=== PATIENT | female | born 1960 | race Caucasian/White ===

== ENCOUNTER 2016-07-25 11:03 | Emergency (ER) | payer SELFPAY ==
[~2016-07-25] VITALS: Ht 167.6 cm; Wt 90.0 kg
[2016-07-25 11:05] VITALS: BP 167/76; PULSE 72; RESP 16; TEMP 98.7; O2SAT 97
[2016-07-25] MEDS ORDERED: AMLO5 PO (11:17)
[2016-07-25] MEDS ORDERED: ONDANSETRON ODT 4 MG TAB PO ONE (11:30)
[2016-07-25] MEDS ORDERED: MECLIZINE HCL 25 MG TAB PO ONE (11:30)
[2016-07-25] MEDS ORDERED: ACETAMINOPHEN 325 MG TAB PO ONE (11:30)
[2016-07-25] MEDS ORDERED: ZOFR4TAB PO (12:09)
[2016-07-25] MEDS ORDERED: MECL-62 PO (12:09)
--- NOTE | 2016-07-25 12:15 | PD ---
HPI Chief Complaint: Dizziness Time Seen by Provider: 12:10 Travel History International Travel<30 days: No Contact w/Intl Traveler<30days: No Traveled to known affect area: No History of Present Illness HPI 56-year-old female that presents to the ED for evaluation of possible vertigo. Per patient she has a history of benign positional vertigo. She was treated with meclizine on October. Per patient she had good results with this. She has not had any episodes since. Per patient she denies any fevers chills or sweats. No numbness, tilling, weakness. Per patient her symptoms are sensation of the room and herself spinning and feeling nauseous with slight headache. Per patient this is the same symptoms she had on her last presentation and unfortunately she ran out of her medical since that she did not have anything to help her symptoms which brought her here to get evaluated. She denies any other symptom. No chest pain or shortness of breath. No urinary symptoms. Pain per patient and the head is 3 out of 10 and she attributes this to the spinning sensation. She feels nauseous secondary to the spinning sensation per patient. She has a history of high blood pressure but no other medical disease. PFSH Past Medical History Hypertension: Yes Kidney Stones: Yes Tetanus Vaccination: < 5 Years ?: Not Tubal Ligation: Yes Past Surgical History Appendectomy: Yes Social History Alcohol Use: No Tobacco Use: No Substance Use: No Allergies-Medications (Allergen,Severity, Reaction): Coded Allergies: Levaquin (Verified Allergy, Severe, 07/25/16) Reported Meds & Prescriptions Reported Meds & Active Scripts Active Zofran (Ondansetron HCl) 4 Mg Tab 4 Mg PO Q6HR PRN Meclizine (Meclizine HCl) 25 Mg Tab 25 Mg PO TID PRN Reported Norvasc (Amlodipine Besylate) 5 Mg Tab 5 Mg PO DAILY Review of Systems Except as stated in HPI: all other systems reviewed are Neg Physical Exam Narrative GENERAL: Well-nourished, well-developed patient in no apparent distress. SKIN: Warm and dry. HEAD: Atraumatic. Normocephalic. EYES: Pupils equal and round reactive to light and accommodation. No scleral icterus. No injection or drainage. ENT: No nasal bleeding or discharge. Mucous membranes pink and moist. TMs are clear with no sign of infection or perforation. No mastoid tenderness. Ear canals are intact bilaterally. No lymphadenopathy. Nostril mucosa is red and moist with clear mucus noted. No sinus tenderness to palpation noted. Tonsils are not enlarged or swollen. No ulvua Deviation. Tongue is midline. NECK: Trachea midline. No JVD. No meningeal signs noted CARDIOVASCULAR: Regular rate and rhythm. RESPIRATORY: No accessory muscle use. Clear to auscultation. Breath sounds equal bilaterally. GASTROINTESTINAL: Abdomen soft, non-tender, nondistended. Hepatic and splenic margins not palpable. MUSCULOSKELETAL: Extremities without clubbing, cyanosis, or edema. No obvious deformities. Full range of motion of the upper and lower extremities bilaterally. 2+ pulses bilaterally. NEUROLOGICAL: Awake and alert. No obvious cranial nerve deficits. Motor grossly within normal limits. Five out of 5 muscle strength in the arms and legs. Normal speech. Romberg test negative. Sensation intact bilaterally. DTRs are 2+ bilaterally. Patient's symptoms are reproducible with standing and movements of the head. PSYCHIATRIC: Appropriate mood and affect; insight and judgment normal. Data Data Last Documented VS Vital Signs Date Time Temp Pulse Resp B/P Pulse Ox O2 Delivery O2 Flow Rate FiO2 07/25/16 11:05 98.7 72 16 167/76 97 Room Air Orders Electrocardiogram (07/25/16 ) Meclizine (Antivert) (07/25/16 11:30) Ondansetron Odt (Zofran Odt) (07/25/16 11:30) Acetaminophen (Tylenol) (07/25/16 11:30) MDM Medical Decision Making Medical Screen Exam Complete: Yes Emergency Medical Condition: Yes Medical Record Reviewed: Yes Differential Diagnosis Vertigo versus benign positional vertigo versus Mnire's disease versus otitis media versus viral illness versus labyrinthitis Narrative Course 56-year-old female that presents to the ED for evaluation of vertigo. Patient was properly examined and was found to have signs and symptoms consistent appears to be likely benign positional vertigo. Patient states that this is the same symptoms she's had in October and meclizine work well for her. Patient has reproducible symptoms with standing as well as with movements of the head. I believe that this is likely benign positional vertigo. Patient's neurovascular intact otherwise. I gave patient the option of workup or trial of medication with meclizine and Zofran and Tylenol. Patient preferred to try the medication first and see how she does. I think this is reasonable. Patient was given the medications with good relief. Patient feels much improved after administration of medications. My attending Dr. Carey evaluated the patient with me and agrees with plan. Patient will be given prescriptions for Zofran and meclizine. I gave patient information for ear nose or throat so she can have good follow-up and further workup and treatment if needed for the in and positional vertigo. She agrees and understands this plan. She was told was look for come here to the ED. See ED worsening symptoms. Diagnosis Primary Impression: BPPV (benign paroxysmal positional vertigo) Qualified Code: H81.10 - BPPV (benign paroxysmal positional vertigo), unspecified laterality Referrals: Ruben Rose MD Patient Instructions: General Instructions Additional Instructions: Take medications as prescribed. Follow with ENT. See ED worsening symptoms. Med/Other Pt SpecificInfo: Prescription(s) given Scripts Ondansetron (Zofran)4 Mg Tab4 Mg PO Q6HR PRN (NAUSEA OR VOMITING) #20 TAB Ref 0 Prov:Kita Carey MD 07/25/16 Meclizine 25 Mg Tab25 Mg PO TID PRN (VERTIGO) #30 TAB Ref 1 Prov:Kita Carey MD 07/25/16 Disposition: 01 DISCHARGE HOME Condition: Stable Jairon Paez July 25, 2016 12:15
[2016-07-25 12:20] VITALS: BP 152/65
--- NOTE | 2016-07-25 12:22 | PD ---
Data Data Last Documented VS Vital Signs Date Time Temp Pulse Resp B/P Pulse Ox O2 Delivery O2 Flow Rate FiO2 07/25/16 12:20 74 16 152/65 99 07/25/16 11:05 98.7 Room Air Orders Electrocardiogram (07/25/16 ) Meclizine (Antivert) (07/25/16 11:30) Ondansetron Odt (Zofran Odt) (07/25/16 11:30) Acetaminophen (Tylenol) (07/25/16 11:30) MDM Supervised Visit with SHAHEEN: Yes Narrative Course The history, exam, and medical decision-making in the associated midlevel provider note were completed with my assistance. I reviewed and agree with the findings presented. I attest that I had a [id number] encounter with the patient on the same day, and personally performed and documented my assessment and findings in the medical record. *My assessment and Findings: this is a 56-year-old female who presents to the emergency department with vertigo. This has happened to her before. She feels okay when she sits still but when she moves she has onset of the symptoms. She has a normal neurologic exam. She feels much better after meclizine which has helped her in the past. I don't think she requires any further testing or imaging. She can follow up with ear nose and throat as needed. Patient was discharged home Diagnosis Primary Impression: BPPV (benign paroxysmal positional vertigo) Qualified Code: H81.10 - BPPV (benign paroxysmal positional vertigo), unspecified laterality Referrals: Ruben Rose MD Patient Instructions: General Instructions Departure Forms: Tests/Procedures Additional Instruction: Take medications as prescribed. Follow with ENT. See ED worsening symptoms. Scripts Ondansetron (Zofran)4 Mg Tab4 Mg PO Q6HR PRN (NAUSEA OR VOMITING) #20 TAB Ref 0 Prov:Kita Carey MD 07/25/16 Meclizine 25 Mg Tab25 Mg PO TID PRN (VERTIGO) #30 TAB Ref 1 Prov:Kita Carey MD 07/25/16 Disposition: 01 DISCHARGE HOME Condition: Stable Kita Carey MD July 25, 2016 12:22
== END 2016-07-25 12:21 | disposition home or self-care (01) ==
LOC: NEPE 11:03
DX: H81.10 Benign paroxysmal vertigo, unspecified ear (principal); I10 Essential (primary) hypertension; R11.0 Nausea
CPT/HCPCS: 99284

== ENCOUNTER 2016-10-03 08:37 | Emergency (ER) | payer MEDICAID, OTHER ==
[~2016-10-03] VITALS: Ht 167.6 cm; Wt 89.0 kg
[~2016-10-03 08:37] MED LIST: AMLO5 PO; MECL-62 PO; ZOFR4TAB PO
[2016-10-03 08:40] VITALS: BP 178/84; PULSE 78; RESP 20; TEMP 97.8; O2SAT 99
[2016-10-03] MEDS ORDERED: TRAM50TA PO (10:35)
[2016-10-03] MEDS ORDERED: PRED20 PO (10:35)
--- NOTE | 2016-10-03 10:44 | PD ---
HPI Chief Complaint: Musculoskeletal Complaint Time Seen by Provider: 10:01 Travel History International Travel<30 days: No Contact w/Intl Traveler<30days: No Traveled to known affect area: No History of Present Illness HPI His patient complains of pain and swelling in both hands. Duration 2 months. Severity is moderate. No injury or fever. She denies history of inflammatory arthritis. No paresthesia or numbness complaints. PFSH Past Medical History Cardiovascular Problems: Yes (HTN) High Cholesterol: Yes Diminished Hearing: No Hypertension: Yes Kidney Stones: Yes Menopausal: Yes : 5 Para: 4 Tubal Ligation: Yes Past Surgical History Appendectomy: Yes Tonsillectomy: Yes Social History Alcohol Use: No Tobacco Use: No Substance Use: No Allergies-Medications (Allergen,Severity, Reaction): Coded Allergies: Levaquin (Verified Allergy, Severe, 10/03/16) Reported Meds & Prescriptions Reported Meds & Active Scripts Active Tramadol (Tramadol HCl) 50 Mg Tab 50 Mg PO Q6H PRN Prednisone 20 Mg Tab 20 Mg PO DAILY Reported Norvasc (Amlodipine Besylate) 5 Mg Tab 5 Mg PO DAILY Review of Systems General / Constitutional: No: Fever HENT: No: Headaches Cardiovascular: No: Chest Pain or Discomfort Respiratory: No: Cough Physical Exam Narrative SKIN: Focused skin assessment reveals no rash or ulcers. Skin is warm and dry. Palpation shows no induration or nodules. Psych: Normal mood and affect. Normal insight and judgment. Hands: There is some tenderness to the MCP joints and wrists of both hands. There is no erythema or warmth. There is a bit of swelling. Pulse and capillary refill and sensation intact Data Data Last Documented VS Vital Signs Date Time Temp Pulse Resp B/P Pulse Ox O2 Delivery O2 Flow Rate FiO2 10/03/16 08:40 97.8 78 20 178/84 99 Room Air MDM Medical Decision Making Medical Screen Exam Complete: Yes Emergency Medical Condition: Yes Medical Record Reviewed: Yes Differential Diagnosis Rheumatoid, gout, lupus Narrative Course I have reviewed the patient's electronic medical record. Seems like this patient is developing some type of connective tissue or inflammatory arthritis problem. At this point is rather nonspecific. I gave her Toradol injection I gave her prescription for 5 days of prednisone and some tramadol to use for pain relief. I advised her to ice and elevate if swelling occurs She should follow-up with primary care to start Diagnosis Primary Impression: Inflammatory arthritis Additional Instructions: The patient was advised to follow up with their physician and return if they worsen. The patient was warned about potential sedation for the medications they will receive on prescription. Ice and elevate any swollen joints Med/Other Pt SpecificInfo: Prescription(s) given Scripts Tramadol 50 Mg Tab50 Mg PO Q6H PRN (PAIN) #15 TAB Ref 0 Prov:Salvatore Cochran MD 10/03/16 Prednisone 20 Mg Tab20 Mg PO DAILY #5 TAB Ref 0 Prov:Salvatore Cochran MD 10/03/16 Disposition: 01 DISCHARGE HOME Condition: Stable Salvatore Cochran MD Oct 03, 2016 10:44
[2016-10-03] MEDS ORDERED: KETOROLAC TROMETHAMINE 60 MG/2 ML (IM) VIAL IM ONE (10:45)
== END 2016-10-03 11:19 | disposition home or self-care (01) ==
LOC: NEPD 08:37
DX: M13.88 Other specified arthritis, other site (principal); I10 Essential (primary) hypertension; E78.00 Pure hypercholesterolemia, unspecified; Z79.899 Other long term (current) drug therapy; Z88.8 Allergy status to other drugs, medicaments and biological substances
CPT/HCPCS: 96372; 99284; J1885

== ENCOUNTER 2016-11-03 17:35 | Emergency (ER) | payer OTHER, MEDICAID ==
[~2016-11-03] VITALS: Ht 167.6 cm; Wt 85.0 kg
[~2016-11-03 17:35] MED LIST changes: -MECL-62 PO; +PRED20 PO; +TRAM50TA PO; -ZOFR4TAB PO
[2016-11-03 17:36] VITALS: BP 149/73; PULSE 82; RESP 17; TEMP 98.7; O2SAT 98
--- NOTE | 2016-11-03 17:46 | PD ---
Physical Exam Date Seen by Provider: Nov 03, 2016 Time Seen by Provider: 17:45 Narrative 56 YOWF C/O BACK PAIN AFTER WORKING YEST. PAIN10/10. VS NOTED WAITING FOR BED PLACEMENT Data Data Last Documented VS Vital Signs Date Time Temp Pulse Resp B/P (MAP) Pulse Ox O2 Delivery O2 Flow Rate FiO2 11/03/16 17:36 98.7 82 17 149/73 (98) 98 Room Air MDM Medical Record Reviewed: No Supervised Visit with SHAHEEN: Yes Zay Santos Nov 03, 2016 17:46
--- NOTE | 2016-11-03 18:29 | PD ---
HPI Chief Complaint: Back/ Neck Pain or Injury Time Seen by Provider: 18:22 Travel History International Travel<30 days: No Contact w/Intl Traveler<30days: No Traveled to known affect area: No History of Present Illness HPI 56-year-old female presents to the emergency Department with complaint of mid to lower back pain since yesterday after working. Denies injury. Says she had incontinence of a small amount of stool earlier today. Reports just having a normal bowel movement while in the emergency department bathroom. Denies saddle anesthesias or incontinence of urine. Reports urinary frequency and hesitancy. Denies hematuria. Reports history of kidney stones. Reports nausea without vomiting. Denies fever. Denies abdominal pain. Denies paresthesias, loss of sensation, decreased range of motion, decreased strength to bilateral lower extremities. Denies difficulty ambulating. Says she is swollen all over. Says pain is worse with all positions and palpation. Denies IV drug use or cancer. Has not taken any medications or tried any treatments to alleviate her symptoms. No known relieving factors. Allergies to levofloxacin. No other modifying factors or associated signs and symptoms. PFSH Past Medical History Cardiovascular Problems: Yes (HTN) High Cholesterol: Yes Diminished Hearing: No Hypertension: Yes Kidney Stones: Yes Menopausal: Yes : 5 Para: 4 Tubal Ligation: Yes Past Surgical History Appendectomy: Yes Tonsillectomy: Yes Social History Alcohol Use: No Tobacco Use: No Substance Use: No Allergies-Medications (Allergen,Severity, Reaction): Coded Allergies: levofloxacin (Unverified Allergy, Severe, 11/03/16) Reported Meds & Prescriptions Reported Meds & Active Scripts Active Ibuprofen 800 Mg Tab 800 Mg PO Q6HR PRN Flexeril (Cyclobenzaprine HCl) 5 Mg Tab 5 Mg PO TID 7 Days Review of Systems Except as stated in HPI: all other systems reviewed are Neg Physical Exam Narrative GENERAL: Well-nourished, well-developed female patient, in no acute distress; afebrile, nontoxic-appearing SKIN: Warm and dry. HEAD: Atraumatic. Normocephalic. EYES: Pupils equal and round. No scleral icterus. No injection or drainage. ENT: Mucosa pink and moist. Airway patent. NECK: Trachea midline. CARDIOVASCULAR: Regular rate. RESPIRATORY: No accessory muscle use. GASTROINTESTINAL: Obese. RECTAL EXAM: Rectal tone normal. MUSCULOSKELETAL: Bilateral lower extremities supple and non-tense with 2+ pedal pulses and sensory intact; with full range of motion and 5/5 strength. 2 + DTRs bilaterally. Active dorsiflexion and extension of bilateral feet. Bilateral straight leg raise is for low back pain. Ambulatory in room with normal gait. Sitting up in bed at 90. No obvious deformities. No clubbing. No cyanosis. No edema. BACK: No CVA tenderness. No midline point tenderness on palpation of the lumbar or thoracic spine. Tenderness on palpation of left lumbar and thoracic paraspinal area. No obvious deformities. NEUROLOGICAL: Awake and alert. Oriented 3. No obvious cranial nerve deficits. Motor grossly within normal limits. Normal speech. Moves all extremities. 5/5 strength to all extremities. Sensory intact. PSYCHIATRIC: Appropriate mood and affect; insight and judgment normal. Data Data Last Documented VS Vital Signs Date Time Temp Pulse Resp B/P (MAP) Pulse Ox O2 Delivery O2 Flow Rate FiO2 11/03/16 22:26 11/03/16 21:27 20 11/03/16 17:36 98.7 82 98 Room Air Orders Orders Urinalysis - C+S If Indicated (11/03/16 17:49) Ketorolac Inj (Toradol Inj) (11/03/16 18:45) Orphenadrine Inj (Norflex Inj) (11/03/16 18:45) Mri L Spine W/O Contrast (11/03/16 ) Acetamin-Hydrocod 325-5 Mg ([place] 5-325 (11/03/16 21:30) Splint Or Brace Apply/Monitor (11/03/16 21:56) Brace Quick Draw Corset (11/03/16 ) Labs Laboratory Tests Test 11/03/16 18:55 Urine Color YELLOW Urine Turbidity CLEAR Urine pH 5.5 Urine Specific [place] 1.023 Urine Protein TRACE mg/dL Urine Glucose (UA) NEG mg/dL Urine Ketones NEG mg/dL Urine Occult Blood TRACE Urine Nitrite NEG Urine Bilirubin NEG Urine Urobilinogen LESS THAN 2.0 MG/DL Urine Leukocyte Esterase NEG Urine RBC 4 /hpf Urine WBC 1 /hpf Urine Squamous Epithelial Cells 2 /hpf Microscopic Urinalysis Comment CULT NOT INDICATED MDM Medical Decision Making Medical Screen Exam Complete: Yes Emergency Medical Condition: Yes Medical Record Reviewed: Yes Differential Diagnosis Kidney stone, UTI, pyelonephritis, back pain Narrative Course 56-year-old female complaining of left lower back pain. Denies injury. Patient reports incontinence of stool earlier today. Had a normal bowel movement here in the ER. Denies IV drug use or cancer. Denies incontinence of urine or saddle anesthesias. Neuro exam is unremarkable. Patient is ambulatory with normal gait. She has no midline tenderness on palpation of the lumbar spine. Reports history of stones. Reports urinary frequency and hesitancy. Patient is afebrile and nontoxic-appearing. Denies fever, vomiting. Urinalysis ordered. 183: Report given to Wan Henry PA-C. See his not for final patient disposition. Scripts Ibuprofen (Ibuprofen) 800 Mg Tab 800 MG PO Q6HR Y for PAIN, #40 TAB 0 Refills Prov: Pepito Rosales MD 11/03/16 Cyclobenzaprine (Flexeril) 5 Mg Tab 5 MG PO TID for Muscle Spasm for 7 Days, TAB 0 Refills Prov: Pepito Rosales MD 11/03/16 Sarah Han Nov 03, 2016 18:29
[2016-11-03] MEDS ORDERED: ORPHENADRINE INJ 60 MG/2 ML AMP IM ONE (18:45)
[2016-11-03] MEDS ORDERED: KETOROLAC TROMETHAMINE 60 MG/2 ML (IM) VIAL IM ONE (18:45)
--- NOTE | 2016-11-03 18:47 | PD ---
Physical Exam Time Seen by Provider: 18:35 Data Data Last Documented VS Orders Orders Urinalysis - C+S If Indicated (11/03/16 17:49) Ketorolac Inj (Toradol Inj) (11/03/16 18:45) Orphenadrine Inj (Norflex Inj) (11/03/16 18:45) Mri L Spine W/O Contrast (11/03/16 ) Acetamin-Hydrocod 325-5 Mg ([place] 5-325 (11/03/16 21:30) Splint Or Brace Apply/Monitor (11/03/16 21:56) Brace Quick Draw Corset (11/03/16 ) Labs Laboratory Tests Test 11/03/16 18:55 Urine Color YELLOW Urine Turbidity CLEAR Urine pH 5.5 Urine Specific [place] 1.023 Urine Protein TRACE mg/dL Urine Glucose (UA) NEG mg/dL Urine Ketones NEG mg/dL Urine Occult Blood TRACE Urine Nitrite NEG Urine Bilirubin NEG Urine Urobilinogen LESS THAN 2.0 MG/DL Urine Leukocyte Esterase NEG Urine RBC 4 /hpf Urine WBC 1 /hpf Urine Squamous Epithelial Cells 2 /hpf Microscopic Urinalysis Comment CULT NOT INDICATED MDM Medical Record Reviewed: Yes Supervised Visit with SHAHEEN: No Narrative Course I assumed Care of this patient when they're removed to [facility]. Please see previous providers notes. Briefly this is a 56-year-old female who presents for evaluation of lower back pain. 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 That her job requires her to do a lot of lifting and twisting and turning and cleaning. She reports that yesterday at work she developed some lower back pain. The pain is an aching pain that is worse with movement. The pain does not radiate into her legs or into her abdomen. She endorses some nausea. She denies abdominal pain, numbness or tingling or weakness or pain in the lower extremities. She reports that she had one episode of bowel incontinence today when she was walking into the building. She reports that she did not notice but she made a small bowel movement in her pants. She denies any saddle anesthesia. She endorses urinary hesitancy. The last time that she urinated was 30 minutes prior to my examination. She denies dysuria. She denies flank pain, hematuria. She denies fevers, chills, recent illness, recent travel. She denies history of IV drug abuse. On examination she has mild tenderness to palpation to the lumbar paravertebral musculature. There is no CVA tenderness. Her abdomen is soft and nontender. She has full muscle strength in lower extremities and no neurologic deficits. Based on her history I suspect the lumbar strain. Given her episode of bowel incontinence and one MRI of the lumbar spine has been ordered. Toradol and Norflex has been ordered for her pain. MRI of the lumbar spine reveals chronic findings with no acute abnormalities. The patient was discharged home. Diagnosis Primary Impression: Lumbar strain Qualified Codes: S39.012A - Strain of muscle, fascia and tendon of lower back , initial encounter Departure Forms: Tests/Procedures, Work Release Enter return to work date: Nov 06, 2016 Additional Instruction: Medication as needed. Do not drive or drink alcohol when taking Flexeril. Take ibuprofen with meals. Rest. Avoid strenuous activity or heavy lifting. Follow-up with primary care physician in 2 weeks. Return for any emergent medical conditions. Med/Other Pt SpecificInfo: Prescription(s) given Scripts Ibuprofen (Ibuprofen) 800 Mg Tab 800 MG PO Q6HR Y for PAIN, #40 TAB 0 Refills Prov: Pepito Rosales MD 11/03/16 Cyclobenzaprine (Flexeril) 5 Mg Tab 5 MG PO TID for Muscle Spasm for 7 Days, TAB 0 Refills Prov: Pepito Rosales MD 11/03/16 Disposition: 01 DISCHARGE HOME Condition: Stable Wan Henry Nov 03, 2016 18:47
[2016-11-03 19:18] LABS: BLOOD, URINE TRACE (NEG); COMMENT (UR) CULT NOT INDICATED; CULTURE IF INDICATED CULT NOT INDICATED; GLUCOSE,URINE NEG (NEG); KETONE, URINE NEG (NEG); NITRITE,URINE NEG (NEG); PH, URINE 5.5 (5.0-8.5); SQUAMOUS EPITHELIAL CELL URINE 2 /hpf (0-5); URINE COLOR YELLOW (YELLW/STRAW)
[2016-11-03] MEDS ORDERED: IBUP800T23 PO (20:59)
[2016-11-03] MEDS ORDERED: CYCL5TAB PO (20:59)
[2016-11-03 21:27] VITALS: RESP 20
[2016-11-03] MEDS ORDERED: ACETAMINOPHEN/HYDROcodone 325 MG/5 MG TAB PO ONE (21:30)
--- NOTE | 2016-11-03 21:48 | RADRPT ---
EXAM DATE/TIME: 11/03/2016 20:41 [facility] COMPARISON: No previous studies available for comparison. INDICATIONS : Pain. MEDICAL HISTORY : Hypertension. SURGICAL HISTORY : Appendectomy. Tonsillectomy. Tubal ligation. ENCOUNTER: Initial ACUITY: 1 day PAIN SCORE: 8/10 LOCATION: Lower back. TECHNIQUE: Multiplanar multisequence MRI of the lumbar spine was performed without contrast. FINDINGS: The most caudal appearing lumbar vertebra is numbered as L5. Sagittal T1, T2 and inversion recovery images show early degenerative disc disease in the lower lumba r spine and lumbosacral junction with some disc desiccation. Vertebral body heights are maintained wi thout fracture or listhesis. Spinal canal is widely patent throughout. Benign-appearing cortical cyst posteriorly in the left kidney. Each of the axial images as follows: T12-L1: The thecal sac has a normal diameter. No evidence of disc bulge or protrusion. The neural foramina are patent bilaterally. L1-L2: The thecal sac has a normal diameter. No evidence of disc bulge or protrusion. The neural foramina are patent bilaterally. L2-L3: The thecal sac has a normal diameter. No evidence of disc bulge or protrusion. The neural foramina are patent bilaterally. L3-L4: The thecal sac has a normal diameter. No evidence of disc bulge or protrusion. The neural foramina are patent bilaterally. L4-L5: Bilateral facet hypertrophy. Spinal canal and neural foramina are patent L5-S1: Bilateral facet hypertrophy. Spinal canal and neural foramina are patent CONCLUSION: 1. Mild degenerative disc disease with some early disc desiccation in the lower lumbar spine and lumb osacral junction. 2. However, the spinal canal and neural foramina are adequate throughout despite facet hypertrophy at L4-5 and L5-S1. No nerve root compromise to explain current clinical symptoms. Padilla Man MD on November 03, 2016 at 21:43 Board Certified Radiologist. This report was verified electronically.
== END 2016-11-03 22:28 | disposition home or self-care (01) ==
LOC: NEPK 17:35 → NEPD 22:28
DX: S39.012A Strain of muscle, fascia and tendon of lower back, initial encounter (principal); X50.1XXA Overexertion from prolonged static or awkward postures, initial encounter; Y93.E9 Activity, other interior property and clothing maintenance; Y92.59 Other trade areas as the place of occurrence of the external cause; Y99.0 Civilian activity done for income or pay
CPT/HCPCS: 72148; 81001; 96372; 99285; J1885; J2360; L0627

== ENCOUNTER 2017-03-29 10:44 | Emergency (ER) | payer SELFPAY ==
[~2017-03-29] VITALS: Ht 167.6 cm; Wt 87.3 kg
[2017-03-29 10:44] VITALS: BP 166/79; PULSE 93; RESP 18; TEMP 99; O2SAT 98
[~2017-03-29 10:44] MED LIST changes: -AMLO5 PO; +CYCL5TAB PO; +IBUP1TAB7 PO; -PRED20 PO; -TRAM50TA PO
[2017-03-29] MEDS ORDERED: PRED20 PO (11:36)
[2017-03-29] MEDS ORDERED: TYLETAB34 PO (11:36)
--- NOTE | 2017-03-29 11:37 | PD ---
HPI Chief Complaint: Musculoskeletal Complaint Time Seen by Provider: 11:13 Travel History International Travel<30 days: No Contact w/Intl Traveler<30days: No Traveled to known affect area: No History of Present Illness HPI This is a 57-year-old female with bilateral hand and foot pain 2 weeks. She denies injury or trauma. No fever or chills. She reports she had similar episodes in the past and was diagnosed with possible arthritis. She has slight improvement with OTC ibuprofen. Symptoms severity mild to moderate. No aggravating factors. PFSH Past Medical History Medical History: Denies Significant Hx Cardiovascular Problems: Yes (HTN) High Cholesterol: Yes Diminished Hearing: No Hypertension: Yes Kidney Stones: Yes ?: Not Menopausal: Yes : 5 Para: 4 Tubal Ligation: Yes Past Surgical History Appendectomy: Yes Tonsillectomy: Yes Social History Alcohol Use: No Tobacco Use: No Substance Use: No Allergies-Medications (Allergen,Severity, Reaction): Coded Allergies: levofloxacin (Unverified Allergy, Severe, 03/29/17) Reported Meds & Prescriptions Reported Meds & Active Scripts Active Review of Systems Except as stated in HPI: all other systems reviewed are Neg General / Constitutional: No: Fever Physical Exam Narrative GENERAL: Alert and well-appearing 57 year old female SKIN: Warm and dry. No areas of erythema or nodules HEAD: Normocephalic. EYES: No injection or drainage. NECK: Supple MUSCULOSKELETAL: Patient reports tenderness in multiple MCP joints and wrist. Mild swelling. No warmth or erythema. No nodules. Full range of motion. Normal sensation. Brisk cap refill. She also has tenderness to the right heel. No evidence of puncture wound or infection. No bony tenderness. Data Data Last Documented VS Vital Signs Date Time Temp Pulse Resp B/P (MAP) Pulse Ox O2 Delivery O2 Flow Rate FiO2 03/29/17 10:44 99.0 93 18 166/79 (108) 98 Room Air MDM Medical Decision Making Medical Screen Exam Complete: Yes Emergency Medical Condition: Yes Differential Diagnosis Inflammatory arthritis, ARTHRITIS, plantar fasciitis Narrative Course This is a 57-year-old female here with nontraumatic bilateral hand and foot pain 2 weeks. Patient is well-appearing. She is afebrile. No evidence of infection. I suspect this is inflammatory arthritis. She'll be treated with steroids and pain medicine. Diagnosis Primary Impression: Inflammatory arthritis Referrals: Primary Care Physician Additional Instructions: Indications as prescribed. Follow-up with her primary doctor. Scripts Acetaminophen-Codeine (Tylenol-Codeine #3) 300-30 mg Tab 1-2 TAB PO Q6H Y for PAIN, #12 TAB 0 Refills Prov: Cherrie Estrada 03/29/17 Prednisone (Prednisone) 20 Mg Tab 40 MG PO DAILY, #8 TAB 0 Refills Take 40 mg (2 tablets) daily for 5 days Prov: Cherrie Estrada 03/29/17 Disposition: 01 DISCHARGE HOME Condition: Stable Cherrie Estrada Mar 29, 2017 11:37
== END 2017-03-29 11:52 | disposition home or self-care (01) ==
LOC: NEPK 10:44
DX: M06.4 Inflammatory polyarthropathy (principal)
CPT/HCPCS: 99284

== ENCOUNTER 2017-06-17 18:21 | Emergency (ER) | payer SELFPAY ==
[~2017-06-17] VITALS: Ht 170.2 cm; Wt 90.0 kg
[~2017-06-17 18:21] MED LIST changes: -CYCL5TAB PO; -IBUP1TAB7 PO; +PRED20 PO; +TYLETAB34 PO
[2017-06-17 18:22] VITALS: BP 201/85; PULSE 77; RESP 18; TEMP 97.8; O2SAT 98
[2017-06-17] MEDS ORDERED: SODIUM CHLOR 0.9% 1000 ML INJ 1,000 ML IV ONE (19:01)
--- NOTE | 2017-06-17 19:02 | PD ---
HPI Chief Complaint: Hypertension Time Seen by Provider: 18:56 Travel History International Travel<30 days: No Contact w/Intl Traveler<30days: No Traveled to known affect area: No History of Present Illness HPI 57-year-old female with history of hypertension presents emergency department for evaluation of elevated blood pressure worsening over the last week. She has developed a generalized headache of the last day and a half with associated nausea. Patient denies any ataxia. No other focal deficits or weakness. Patient has been out of her antihypertensive for an unknown amount of time but several weeks. She cannot recall what medication it was. Denies any chest pain or tightness. No difficulty breathing. No recent illnesses, fever, or chills. She has no other symptoms to report. [facility] Past Medical History Cardiovascular Problems: Yes (HTN) High Cholesterol: Yes Diminished Hearing: No Hypertension: Yes Kidney Stones: Yes ?: Not Menopausal: Yes : 5 Para: 4 Tubal Ligation: Yes Past Surgical History Appendectomy: Yes Tonsillectomy: Yes Social History Alcohol Use: No Tobacco Use: No Substance Use: No Allergies-Medications (Allergen,Severity, Reaction): Coded Allergies: levofloxacin (Unverified Allergy, Severe, 06/17/17) Reported Meds & Prescriptions Reported Meds & Active Scripts Active Amlodipine (Amlodipine Besylate) 5 Mg Tab 5 Mg PO DAILY Review of Systems Except as stated in HPI: all other systems reviewed are Neg Physical Exam Narrative GENERAL: Well-nourished female patient, ambulatory with a non-ataxic gait, no acute distress. SKIN: Focused skin assessment warm/dry. HEAD: Atraumatic. Normocephalic. EYES: Pupils equal and round. No scleral icterus. No injection or drainage. ENT: No nasal bleeding or discharge. Mucous membranes pink and moist. NECK: Trachea midline. No JVD. CARDIOVASCULAR: Regular rate and rhythm. No murmur appreciated. RESPIRATORY: No accessory muscle use. Clear to auscultation. Breath sounds equal bilaterally. GASTROINTESTINAL: Abdomen soft, non-tender, nondistended. Hepatic and splenic margins not palpable. MUSCULOSKELETAL: No obvious deformities. No clubbing. No cyanosis. No edema. NEUROLOGICAL: Awake and alert. No obvious cranial nerve deficits. Motor grossly within normal limits. Normal speech. PSYCHIATRIC: Appropriate mood and affect; insight and judgment normal. Data Data Last Documented VS Vital Signs Date Time Temp Pulse Resp B/P (MAP) Pulse Ox O2 Delivery O2 Flow Rate FiO2 06/17/17 19:41 70 18 168/79 (108) 99 06/17/17 18:22 97.8 Orders Orders Complete Blood Count With Diff (06/17/17 19:01) Basic Metabolic Panel (Bmp) (06/17/17 19:01) Prothrombin Time / Inr (Pt) (06/17/17:) Act Partial Throm Time (Ptt) (06/17/17 19:) Ct Brain W/O Iv Contrast(Rout) (06/17/17 19:) Ecg Monitoring (06/17/17 19:) Iv Access Insert/Monitor (06/17/17:) Oximetry (06/17/17:) Sodium Chloride 0.9% Flush (Ns Flush) (06/17/17 19:15) Ketorolac Inj (Toradol Inj) (06/17/17 19:15) Prochlorperazine Inj (Compazine Inj) (06/17/17 19:15) Diphenhydramine Inj (Benadryl Inj) (06/17/17 19:15) Sodium Chlor 0.9% 1000 Ml Inj (Ns 1000 M (06/17/17 19:01) Ed Discharge Order (06/17/17 20:17) Labs Laboratory Tests Test 06/17/17 19:15 White Blood Count 9.2 TH/MM3 Red Blood Count 3.71 MIL/MM3 Hemoglobin 11.9 GM/DL Hematocrit 34.2 % Mean Corpuscular Volume 92.1 FL Mean Corpuscular Hemoglobin 32.1 PG Mean Corpuscular Hemoglobin Concent 34.8 % Red Cell Distribution Width 13.4 % Platelet Count 258 TH/MM3 Mean Platelet Volume 9.3 FL Neutrophils (%) (Auto) 54.3 % Lymphocytes (%) (Auto) 35.7 % Monocytes (%) (Auto) 6.3 % Eosinophils (%) (Auto) 2.8 % Basophils (%) (Auto) 0.9 % Neutrophils # (Auto) 5.0 TH/MM3 Lymphocytes # (Auto) 3.3 TH/MM3 Monocytes # (Auto) 0.6 TH/MM3 Eosinophils # (Auto) 0.3 TH/MM3 Basophils # (Auto) 0.1 TH/MM3 CBC Comment DIFF FINAL Differential Comment Prothrombin Time 10.0 SEC Prothromb Time International Ratio 1.0 RATIO Activated Partial Thromboplast Time 25.0 SEC Blood Urea Nitrogen 19 MG/DL Creatinine 0.87 MG/DL Random Glucose 105 MG/DL Calcium Level 8.5 MG/DL Sodium Level 143 MEQ/L Potassium Level 4.1 MEQ/L Chloride Level 108 MEQ/L Carbon Dioxide Level 27.2 MEQ/L Anion Gap 8 MEQ/L Estimat Glomerular Filtration Rate 67 ML/MIN [facility] Medical Decision Making Medical Screen Exam Complete: Yes Emergency Medical Condition: Yes Medical Record Reviewed: Yes Differential Diagnosis Hypertension versus medication noncompliance versus electrolyte abnormality versus headache versus intracranial hemorrhage Narrative Course 57-year-old female presents to emergency department for evaluation of elevated blood pressure with associated headache and nausea. Patient appears without distress. Neuro exam is nonfocal. Patient is hypertensive here. CT imaging of the brain shows no intracranial abnormality. Patient is treated for her headache. She will be started on amlodipine outpatient. She is encouraged to follow-up with a primary care provider and return immediately with acute worsening symptoms. Diagnosis Primary Impression: Hypertension Qualified Codes: I10 - Essential (primary) hypertension Additional Impression: Headache Qualified Codes: R51 - Headache Referrals: [facility] Primary Care Physician Patient Instructions: Chronic Hypertension (ED), General Instructions Departure Forms: Tests/Procedures, Work Release Enter return to work date: Jun 19, 2017 Additional Instructions: Follow-up with a primary care provider Amlodipine is free at [facility] Return immediately with acute worsening symptoms Med/Other Pt SpecificInfo: Prescription(s) given Scripts Amlodipine (Amlodipine) 5 Mg Tab 5 MG PO DAILY for Blood Pressure Management, #30 TAB 0 Refills Prov: Tomasa Bautista 06/17/17 Disposition: 01 DISCHARGE HOME Condition: Stable Tomasa Bautista Jun 17, 2017 19:02
[2017-06-17] MEDS ORDERED: SODIUM CHLORIDE 0.9% FLUSH 10 ML FLUSH IVF PRN (19:15)
[2017-06-17] MEDS ORDERED: diphenhydrAMINE HCL 50 MG/ML VIAL IVP ONE (19:15)
[2017-06-17] MEDS ORDERED: KETOROLAC TROMETHAMINE 30 MG/ML (IVP) VIAL IVP ONE (19:15)
[2017-06-17] MEDS ORDERED: PROCHLORPERAZINE INJ 10 MG/2 ML VIAL IVP ONE (19:15)
[2017-06-17 19:41] VITALS: BP 168/79; PULSE 70; RESP 18; O2SAT 99
[2017-06-17 19:44] LABS: BASOPHIL # 0.1 TH/MM3 (0-0.2); BASOPHIL % 0.9 % (0.0-2.0); EOSINOPHIL # 0.3 TH/MM3 (0-0.4); EOSINOPHIL % 2.8 % (0.0-4.0); HEMATOCRIT 34.2 % (35.0-46.0); HEMOGLOBIN 11.9 GM/DL (11.6-15.3); LYMPH % 35.7 % (9.0-44.0); LYMPHOCYTE # 3.3 TH/MM3 (1.0-4.8); MEAN CELL VOLUME 92.1 FL (80.0-100.0); MEAN CORPUSCULAR HEMOGLOBIN 32.1 PG (27.0-34.0); MEAN CORPUSCULAR HGB CONC 34.8 % (32.0-36.0); MEAN PLATELET VOLUME 9.3 FL (7.0-11.0); MONO % 6.3 % (0.0-8.0); MONOCYTE # 0.6 TH/MM3 (0-0.9); NEUT % 54.3 % (16.0-70.0); PLATELET COUNT 258 TH/MM3 (150-450); RED BLOOD COUNT 3.71 MIL/MM3 (4.00-5.30); RED CELL DISTRIBUTION WIDTH 13.4 % (11.6-17.2); WHITE BLOOD COUNT 9.2 TH/MM3 (4.0-11.0)
[2017-06-17 19:58] LABS: BICARBONATE 27.2 MEQ/L (21.0-32.0); CALCIUM 8.5 MG/DL (8.5-10.1); CREATININE 0.87 MG/DL (0.50-1.00)
--- NOTE | 2017-06-17 20:13 | RADRPT ---
EXAM DATE/TIME: 06/17/2017 19:46 [place] COMPARISON: No previous studies available for comparison. INDICATIONS : Headaches with high blood pressure. RADIATION DOSE: 36.84 CTDIvol (mGy) MEDICAL HISTORY : Cardiovascular disease. Hypertension. Renal calculi. SURGICAL HISTORY : Appendectomy. Tubal ligation. ENCOUNTER: Initial ACUITY: 3 days PAIN SCALE: 8/10 LOCATION: Bilateral cranial TECHNIQUE: Multiple contiguous axial images were obtained of the head. Using automated exposure control and adj ustment of the mA and/or kV according to patient size, radiation dose was kept as low as reasonably a chievable to obtain optimal diagnostic quality images. DICOM format image data is available electro nically for review and comparison. FINDINGS: CEREBRUM: The ventricles are normal for age. No evidence of midline shift, mass lesion, hemorrhage or acute in farction. No extra-axial fluid collections are seen. POSTERIOR FOSSA: The cerebellum and brainstem are intact. The 4th ventricle is midline. The cerebellopontine angle i s unremarkable. EXTRACRANIAL: The visualized portion of the orbits is intact. SKULL: The calvaria is intact. No evidence of skull fracture. CONCLUSION: 1. No acute intracranial abnormalities. Zay Rome MD on June 17, 2017 at 20:09 Board Certified Radiologist. This report was verified electronically.
[2017-06-17] MEDS ORDERED: AMLO5TAB2 PO (20:20)
== END 2017-06-17 20:40 | disposition home or self-care (01) ==
LOC: NEPD 18:21
DX: I10 Essential (primary) hypertension (principal); R51 Headache; E78.00 Pure hypercholesterolemia, unspecified; I25.10 Atherosclerotic heart disease of native coronary artery without angina pectoris; Z87.442 Personal history of urinary calculi; Z88.8 Allergy status to other drugs, medicaments and biological substances
CPT/HCPCS: 70450; 80048; 85025; 85610; 85730; 96374; 96375; 99284; J0780; J1200; J1885; J7030

== ENCOUNTER 2017-07-19 17:52 | Emergency (ER) | payer OTHER ==
[~2017-07-19] VITALS: Ht 170.2 cm; Wt 89.0 kg
[~2017-07-19 17:52] MED LIST changes: +AMLO5TAB2 PO; -PRED20 PO; -TYLETAB34 PO
[2017-07-19 18:00] VITALS: BP 153/86; PULSE 94; RESP 16; TEMP 98.8; O2SAT 98
[2017-07-19] MEDS ORDERED: SODIUM CHLORIDE 0.9% FLUSH 10 ML FLUSH IVF PRN (20:30)
[2017-07-19] MEDS ORDERED: KETOROLAC TROMETHAMINE 30 MG/ML (IVP) VIAL IV PUSH ONE (20:30)
[2017-07-19] MEDS ORDERED: PROMETHAZINE INJ 25 MG/ML VIAL IM ONE (20:30)
[2017-07-19] MEDS ORDERED: HYDROmorphone HCL PF 1 MG/ML VIAL IV PUSH ONE (20:30)
[2017-07-19] MEDS ORDERED: HYDROmorphone HCL PF 2 MG/ML VIAL IV PUSH ONE (20:45)
[2017-07-19 20:51] LABS: BILIRUBIN, URINE NEG (NEG); BLOOD, URINE NEG (NEG); GLUCOSE,URINE NEG (NEG); KETONE, URINE NEG (NEG); MUCUS URINE FEW /lpf (OCC); NITRITE,URINE NEG (NEG); SQUAMOUS EPITHELIAL CELL URINE 1 /hpf (0-5); URINE COLOR YELLOW (YELLW/STRAW); URINE LEUKOCYTE ESTERASE NEG (NEG)
--- NOTE | 2017-07-19 21:34 | PD ---
HPI Chief Complaint: Flank/Kidney Pain Time Seen by Provider: 20:10 Travel History International Travel<30 days: No Contact w/Intl Traveler<30days: No Traveled to known affect area: No History of Present Illness HPI The patient was seen and examined in the presence of the nurse. This patient complains of severe right flank pain. Duration is one day. No injury or fever. She has history of kidney stones and this feels the same way. It is difficult for her to achieve a position of comfort. No sciatic radiation. No alleviating factors. Exacerbating factors. PFSH Past Medical History Cardiovascular Problems: Yes (HTN) High Cholesterol: Yes Diminished Hearing: No Hypertension: Yes Kidney Stones: Yes ?: Not Menopausal: Yes : 5 Para: 4 Tubal Ligation: Yes Past Surgical History Appendectomy: Yes Tonsillectomy: Yes Social History Alcohol Use: No Tobacco Use: No Substance Use: No Allergies-Medications (Allergen,Severity, Reaction): Coded Allergies: levofloxacin (Unverified Allergy, Severe, 06/17/17) Reported Meds & Prescriptions Reported Meds & Active Scripts Active Zofran (Ondansetron HCl) 4 Mg Tab 4 Mg PO Q6HR PRN Tramadol (Tramadol HCl) 50 Mg Tab 50 Mg PO Q6H PRN Amlodipine (Amlodipine Besylate) 5 Mg Tab 5 Mg PO DAILY Review of Systems General / Constitutional: No: Fever Eyes: No: Visual changes HENT: No: Headaches Cardiovascular: No: Chest Pain or Discomfort Respiratory: No: Shortness of Breath Gastrointestinal: Positive: Nausea, No: Abdominal Pain Genitourinary: Positive: Flank Pain, No: Dysuria Musculoskeletal: No: Pain Skin: No Rash Neurologic: No: Weakness Psychiatric: No: Depression Endocrine: No: Polydipsia Hematologic/Lymphatic: No: Easy Bruising Physical Exam Narrative GENERAL: Well-nourished, well-developed patient with severe right flank pain. SKIN: Focused skin assessment reveals no rash and nodules. Skin is Warm and dry. HEAD: Atraumatic. Normocephalic. EYES: Pupils equal and round. No scleral icterus. No injection or drainage. ENT: No nasal bleeding or discharge. Mucous membranes pink and moist. NECK: Trachea midline. No JVD. CARDIOVASCULAR: Regular rate and rhythm. No murmur appreciated. RESPIRATORY: No accessory muscle use. Clear to auscultation. Breath sounds equal bilaterally. GASTROINTESTINAL: Abdomen soft, non-tender, nondistended. Hepatic and splenic margins not palpable. MUSCULOSKELETAL: No obvious deformities. No clubbing. No cyanosis. No edema. No midline tenderness of the back NEUROLOGICAL: Awake and alert. No obvious cranial nerve deficits. Motor grossly within normal limits. Normal speech. PSYCHIATRIC: Appropriate mood and affect; insight and judgment normal. Data Data Last Documented VS Vital Signs Date Time Temp Pulse Resp B/P (MAP) Pulse Ox O2 Delivery O2 Flow Rate FiO2 07/19/17 22:23 16 07/19/17 18:00 98.8 94 153/86 (108) 98 Orders Orders Complete Blood Count With Diff (07/19/17 20:17) Basic Metabolic Panel (Bmp) (07/19/17 20:17) Urinalysis - C+S If Indicated (07/19/17 20:17) Ct Abd/Pel W/O Iv Contrast (07/19/17 20:17) Iv Access Insert/Monitor (07/19/17 20:17) Ketorolac Inj (Toradol Inj) (07/19/17 20:30) Sodium Chloride 0.9% Flush (Ns Flush) (07/19/17 20:30) Hydromorphone Pf Inj (Dilaudid Pf Inj) (07/19/17 20:30) Promethazine Inj (Phenergan Inj) (07/19/17 20:30) Hydromorphone Pf Inj (Dilaudid Pf Inj) (07/19/17 20:45) Hydromorphone Pf Inj (Dilaudid Pf Inj) (07/19/17 23:45) Hydromorphone Pf Inj (Dilaudid Pf Inj) (07/20/17 00:00) Ed Discharge Order (07/20/17 00:35) Labs Laboratory Tests Test 07/19/17 20:30 07/19/17 23:45 Urine Color YELLOW Urine Turbidity CLEAR Urine pH 6.0 Urine Specific [place] 1.020 Urine Protein NEG mg/dL Urine Glucose (UA) NEG mg/dL Urine Ketones NEG mg/dL Urine Occult Blood NEG Urine Nitrite NEG Urine Bilirubin NEG Urine Urobilinogen LESS THAN 2.0 MG/DL Urine Leukocyte Esterase NEG Urine RBC 1 /hpf Urine WBC 1 /hpf Urine Squamous Epithelial Cells 1 /hpf Urine Mucus FEW /lpf Microscopic Urinalysis Comment CULT NOT INDICATED White Blood Count 10.5 TH/MM3 Red Blood Count 4.15 MIL/MM3 Hemoglobin 12.8 GM/DL Hematocrit 37.8 % Mean Corpuscular Volume 91.0 FL Mean Corpuscular Hemoglobin 30.8 PG Mean Corpuscular Hemoglobin Concent 33.8 % Red Cell Distribution Width 13.2 % Platelet Count 324 TH/MM3 Mean Platelet Volume 8.8 FL Neutrophils (%) (Auto) 51.1 % Lymphocytes (%) (Auto) 39.5 % Monocytes (%) (Auto) 6.4 % Eosinophils (%) (Auto) 2.3 % Basophils (%) (Auto) 0.7 % Neutrophils # (Auto) 5.4 TH/MM3 Lymphocytes # (Auto) 4.2 TH/MM3 Monocytes # (Auto) 0.7 TH/MM3 Eosinophils # (Auto) 0.2 TH/MM3 Basophils # (Auto) 0.1 TH/MM3 CBC Comment DIFF FINAL Differential Comment Blood Urea Nitrogen 19 MG/DL Creatinine 1.06 MG/DL Random Glucose 104 MG/DL Calcium Level 8.9 MG/DL Sodium Level 142 MEQ/L Potassium Level 3.8 MEQ/L Chloride Level 107 MEQ/L Carbon Dioxide Level 26.9 MEQ/L Anion Gap 8 MEQ/L Estimat Glomerular Filtration Rate 53 ML/MIN MDM Medical Decision Making Medical Screen Exam Complete: Yes Emergency Medical Condition: Yes Medical Record Reviewed: Yes Differential Diagnosis Kidney stone, sciatica, lumbar strain Narrative Course I have reviewed the patient's electronic medical record. IV placed and labs sent I gave her dose of pain and nausea medication for symptom relief CT of abdomen and pelvis shows no cause for her pain. There is no right-sided stone or kidney problem noted. Left-sided tiny stones are incidental findings Urinalysis is clean Labs are normal I gave her a second dose of pain medication on recheck she is resting comfortably and feels much better Recommend primary care follow-up Etiology of her right flank pain is unclear there are no objective findings on exam or testing. Vitals are normal Diagnosis Primary Impression: Acute right flank pain Additional Instructions: The patient was advised to follow up with their physician and return if they worsen. The patient was warned about potential sedation for the medications they will receive on prescription. Med/Other Pt SpecificInfo: Prescription(s) given Scripts Ondansetron (Zofran) 4 Mg Tab 4 MG PO Q6HR Y for NAUSEA OR VOMITING, #10 TAB 0 Refills Prov: Salvatore Cochran MD 07/20/17 Tramadol (Tramadol) 50 Mg Tab 50 MG PO Q6H Y for PAIN, #12 TAB 0 Refills Prov: Salvatore Cochran MD 07/20/17 Disposition: 01 DISCHARGE HOME Condition: Stable Salvatore Cochran MD July 19, 2017 21:34
[2017-07-19 22:23] VITALS: RESP 16
--- NOTE | 2017-07-19 23:44 | RADRPT ---
EXAM DATE: 07/19/2017 8:48 PM EDT AGE/SEX: 57 years / Female INDICATIONS: Right flank pain. CLINICAL DATA: This is the patient's initial encounter. Patient reports that signs and symptoms have been present for 1 day and indicates a pain score of 10/10. MEDICAL/SURGICAL HISTORY: Hypertension. Renal calculi. Appendectomy. Tubal ligation. RADIATION DOSE: 8.45 CTDI (mGy) COMPARISON: No prior [facility] exams available for comparison. TECHNIQUE: Multiple contiguous axial images were obtained through the abdomen. Images were obtained using multiple row detector helical technique. Using dose reduction techniques, radiation dose was ke pt as low as reasonably achievable to obtain optimal diagnostic quality images. FINDINGS: Lower Lungs: The visualized lower lungs are clear. Liver: The liver has a homogeneous density without space-occupying lesion. There is no dilation of th e biliary tree. Spleen: Homogeneous density without enlargement. Pancreas: Unremarkable without mass or calcification. Kidneys: Kidneys are normal in size and shape except for more mild cortical scarring along the left lateral kidney. There are 2 minute less than 1 mm nonobstructing left renal calculi. There are no rig ht renal calculi. There is no inflammatory change. The visualized portions of the ureters are unremar kable. There are multiple calcified phleboliths in the pelvis. Adrenal Glands: Unremarkable. Aorta: The aorta and proximal iliac vessels are grossly unremarkable without aneurysmal dilation. Bowel/Mesentery: The bowel loops are grossly unremarkable. The cecum and sigmoid colon have a normal configuration. Abdominal Wall: Intact. Retroperitoneum: No evidence of adenopathy in the retrocrural, para-aortic, or deep pelvic regions. Bladder: Contours are smooth. Reproductive Organs: No abnormal masses or calcifications seen. Inguinal: The inguinal region is unremarkable without evidence of adenopathy. Bony Structures: Unremarkable. CONCLUSION: 1. Unremarkable right kidney with no renal calculi or obstruction. 2. 2 minute nonobstructing left renal calculi with mild cortical scarring. 3. Unremarkable gallbladder which is 60 breast. Electronically signed by: Ruben Pereira MD 07/19/2017 11:43 PM EDT
[2017-07-19] MEDS ORDERED: HYDROmorphone HCL PF 1 MG/ML VIAL IVS ONE (23:45)
[2017-07-19 23:57] LABS: AUTOMATED NEUTROPHIL # 5.4 TH/MM3 (1.8-7.7); BASOPHIL # 0.1 TH/MM3 (0-0.2); BASOPHIL % 0.7 % (0.0-2.0); EOSINOPHIL # 0.2 TH/MM3 (0-0.4); EOSINOPHIL % 2.3 % (0.0-4.0); HEMATOCRIT 37.8 % (35.0-46.0); HEMOGLOBIN 12.8 GM/DL (11.6-15.3); LYMPH % 39.5 % (9.0-44.0); LYMPHOCYTE # 4.2 TH/MM3 (1.0-4.8); MEAN CORPUSCULAR HEMOGLOBIN 30.8 PG (27.0-34.0); MEAN CORPUSCULAR HGB CONC 33.8 % (32.0-36.0); MEAN PLATELET VOLUME 8.8 FL (7.0-11.0); MONO % 6.4 % (0.0-8.0); MONOCYTE # 0.7 TH/MM3 (0-0.9); NEUT % 51.1 % (16.0-70.0); PLATELET COUNT 324 TH/MM3 (150-450); RED BLOOD COUNT 4.15 MIL/MM3 (4.00-5.30); RED CELL DISTRIBUTION WIDTH 13.2 % (11.6-17.2); WHITE BLOOD COUNT 10.5 TH/MM3 (4.0-11.0)
[2017-07-20] MEDS ORDERED: HYDROmorphone HCL PF 2 MG/ML VIAL IVS ONE
[2017-07-20 00:28] LABS: BICARBONATE 26.9 MEQ/L (21.0-32.0); CALCIUM 8.9 MG/DL (8.5-10.1); CREATININE 1.06 MG/DL (0.50-1.00)
[2017-07-20] MEDS ORDERED: TRAM50TA PO (00:36)
[2017-07-20] MEDS ORDERED: ZOFR4TAB PO (00:36)
[2017-07-20 01:08] VITALS: BP 136/84
== END 2017-07-20 01:10 | disposition home or self-care (01) ==
LOC: NEPD 17:52
DX: R10.9 Unspecified abdominal pain (principal); I10 Essential (primary) hypertension; Z87.442 Personal history of urinary calculi
CPT/HCPCS: 74176; 80048; 81001; 85025; 96372; 96374; 96375; 96376; 99284; J1170; J1885; J2550

== ENCOUNTER 2018-03-05 15:34 | Observation (INO) ==
[2018-03-05] MEDS ORDERED: Aspirin 325 MG Tablet PO ONE (15:57)
--- NOTE | 2018-03-05 16:11 | XR ---
EXAM DATE: 03/05/2018 4:07 PM EST AGE/SEX: 58 years / Female INDICATIONS: Chest pain CLINICAL DATA: This is the patient's initial encounter. Patient reports that signs and symptoms have been present for 1 day and indicates a pain score of 2/10. MEDICAL/SURGICAL HISTORY: . Hypertension. . Tonsillectomy. Tubal ligation. COMPARISON: No prior exams available for comparison. FINDINGS: A single AP view of the chest demonstrates the lungs to be symmetrically aerated without evidence of mass, infiltrate or effusion. The cardiomediastinal contours are unremarkable. Osseous structures a re intact. CONCLUSION: The lungs are clear. Electronically signed by: Butch Waterman MD Board Certified Radiologist 03/05/2018 4:09 PM EST
[2018-03-05 16:14] LABS: Baso # (Auto) 0.1 th/mm3 (0.0-0.2); Baso % (Auto) 0.8 % (0.0-2.0); Eos # (Auto) 0.1 th/mm3 (0.0-0.4); Eos % (Auto) 1.6 % (0.0-4.0); Hematocrit 38.1 % (35.0-46.0); Hemoglobin 13.4 gm/dL (11.6-15.3); Lymph # (Auto) 2.5 th/mm3 (1.0-4.8); Lymph % (Auto) 27.4 % (9.0-44.0); Mean Corpuscular HGB Conc 35.1 % (32.0-36.0); Mean Corpuscular Hemoglobin 32.8 pg (27.0-34.0); Mean Corpuscular Volume 93.3 fL (80.0-100.0); Mean Platelet Volume 8.7 fL (7.0-11.0); Mono # (Auto) 0.6 th/mm3 (0.0-0.9); Mono % (Auto) 6.2 % (0.0-8.0); Neut # (Auto) 5.9 th/mm3 (1.8-7.7); Platelet Count 281 th/mm3 (150-450); Red Blood Count 4.08 mil/mm3 (4.00-5.30); Red Cell Distribution Width 13.7 % (11.6-17.2); White Blood Count 9.3 th/mm3 (4.0-11.0)
--- NOTE | 2018-03-05 16:14 | ED ---
HPI General Chief Complaint: Chest Pain Stated Complaint: chest pain, headache, lips tingling Time Seen by Provider: 03/05/18 15:57 Source: patient Mode of arrival: ambulatory Limitations: no limitations History of Present Illness HPI narrative: 58-year-old female patient with previous history of hypertension , has not been on blood pressure medications for at least 2 years since she moved from [place], presents to the ER today because she states that this morning she started having paresthesias in her lips, face, and started having chest discomfort which she states feels like pressure, headache, and states that her blood pressure was checked here and it was very elevated. She does not remember what blood pressure medication she had been on in the past. She denies any fevers, shortness of breath, abdominal pain, or other symptoms. Modifying Factors: None Associated Signs & Symptoms: Chest discomfort, headaches, paresthesias, elevated blood pressure Risk Factors: History of hypertension Related Data Home Medications Medication Instructions Recorded Confirmed No Known Home Medications 03/05/18 03/05/18 Allergies Allergy/AdvReac Type Severity Reaction Status Date / Time levofloxacin Allergy Severe Hives Verified 12/01/17 11:45 Review of Systems ROS: all other systems reviewed are negative [facility] Medical History Medical History Asthma (Acute) Hypertension (Acute) Surgical History Surgical History Hx of tonsillectomy (Acute) Hx of tubal ligation (Acute) Social History Social History Substance History: Active Abuse Second Hand Smoke Exposure: No Smoking Status: Former smoker How Often Do You Have a Drink Containing Alcohol: Never Recent Travel in [facility] within the Last 8 Weeks: No Recent Out of Country Travel within the Last 8 Weeks: No Immunization History Tetanus Immunization: >5 Years Exam Narrative Exam Narrative: GENERAL: Well-developed middle-aged female patient currently in moderate distress. Awake and oriented x3. SKIN: Focused skin assessment warm/dry. HEAD: Atraumatic. Normocephalic. EYES: Pupils equal and round. No scleral icterus. No injection or drainage. ENT: No nasal bleeding or discharge. Mucous membranes pink and moist. NECK: Trachea midline. No JVD. CARDIOVASCULAR: Regular rate and rhythm. No murmur appreciated. RESPIRATORY: No accessory muscle use. Clear to auscultation. Breath sounds equal bilaterally. GASTROINTESTINAL: Abdomen soft, non-tender, nondistended. Hepatic and splenic margins not palpable. MUSCULOSKELETAL: No obvious deformities. No clubbing. No cyanosis. No edema. NEUROLOGICAL: Awake and alert. No obvious cranial nerve deficits. Motor grossly within normal limits. Normal speech. PSYCHIATRIC: Mildly anxious mood and affect; insight and judgment normal. Course Initial Documented Vital Signs Temperature 99 F 03/05/18 15:44 Pulse Rate 100 H 03/05/18 15:44 Respiratory Rate 18 03/05/18 15:44 Blood Pressure 163/78 H 03/05/18 15:44 Pulse Oximetry 97 03/05/18 15:44 Last Documented Vital Signs Temperature 99 F 03/05/18 15:44 Pulse Rate 87 03/05/18 16:25 Respiratory Rate 21 03/05/18 16:25 Blood Pressure 168/73 H 03/05/18 16:25 Pulse Oximetry 97 03/05/18 16:25 Medical Decision Making MDM Narrative Medical decision making narrative: EKG, lab work was fairly unremarkable. She was given aspirin and nitroglycerin in the ER. On reevaluation at 5 PM, her headache has gone completely away and her blood pressure is improved to 168/73. Her chest pain is down to a 5 out of 10. At this point, I have discussed the findings with the patient and my plan would be to admit the patient for further evaluation of her chest pain and a chest pain center. Medical Screen Exam Complete: Yes Emergency Medical Condition: Yes Differential Diagnosis Differential Diagnosis: Hypertensive urgency versus ACS versus anxiety attack Lab Data Lab results reviewed: Yes I reviewed the patient's lab results. Result diagrams: 03/05/18 16:05 03/05/18 16:05 Lab Results 03/05/18 03/05/18 Range/Units 16:05 16:05 WBC 9.3 (4.0-11.0) th/mm3 RBC 4.08 (4.00-5.30) mil/mm3 Hgb 13.4 (11.6-15.3) gm/dL Hct 38.1 (35.0-46.0) % MCV 93.3 (80.0-100.0) fL MCH 32.8 (27.0-34.0) pg MCHC 35.1 (32.0-36.0) % RDW 13.7 (11.6-17.2) % Plt Count 281 (150-450) th/mm3 MPV 8.7 (7.0-11.0) fL Neut % (Auto) 64.0 (16.0-70.0) % Lymph % (Auto) 27.4 (9.0-44.0) % [place] % (Auto) 6.2 (0.0-8.0) % Eos % (Auto) 1.6 (0.0-4.0) % Baso % (Auto) 0.8 (0.0-2.0) % Neut # (Auto) 5.9 (1.8-7.7) th/mm3 Lymph # (Auto) 2.5 (1.0-4.8) th/mm3 [place] # (Auto) 0.6 (0.0-0.9) th/mm3 Eos # (Auto) 0.1 (0.0-0.4) th/mm3 Baso # (Auto) 0.1 (0.0-0.2) th/mm3 WBC Differential . Differential Comment Auto diff final Sodium 139 (136-145) meq/L Potassium 4.0 (3.5-5.1) meq/L Chloride 104 (98-107) meq/L Carbon Dioxide 30.1 (21.0-32.0) meq/L Anion Gap 5 (5-15) meq/L BUN 13 (7-18) mg/dL Creatinine 1.13 H (0.50-1.00) mg/dL Estimated GFR 49 L (>89) mL/min Random Glucose 111 H (74-106) mg/dL Calcium 9.3 (8.5-10.1) mg/dL Total Bilirubin 0.5 (0.2-1.0) mg/dL AST 21 (15-37) U/L ALT 35 (10-53) U/L Alkaline Phosphatase 100 (45-117) U/L Troponin I Less than 0.02 L (0.02-0.05) ng/mL Total Protein 8.2 (6.4-8.2) g/dL Albumin 4.0 (3.4-5.0) g/dL Imaging Data Attestation: I personally reviewed and interpreted this imaging study as follows : Radiologist's impression: Chest X-Ray 03/05/18 15:57 CONCLUSION: The lungs are clear. ECG Data Attestation: I personally reviewed and interpreted this ECG as follows: Interpretation: EKG shows normal sinus rhythm at a rate of as per minute. No signs of acute ST elevations or depressions. Discharge Plan Discharge Disposition Patient Disposition: ED Admit(ED Internal Use Only) Discharge Condition Condition: Stable Discharge Order Discharge Orders: ED Use Only Admit Order (Routine); Ordered 03/05/18 Ordered By: Teddy Brewster Discharge Details Anticipated Discharge Date: 03/05/18 Diagnosis: Chest pain Physicians Team ED Provider: Teddy Brewster Primary Care Provider: Primary Care Nabeeli,Lucina Rxs /Orders / Referrals /Forms Prescriptions: No Action No Known Home Medications RF: 0 Discharge Instructions Patient Printed Instructions: Chest Pain (ED) Discharge Interventions Interventions: Vital Signs Last Done: 03/05/18 15:57 Status ED Status: With Doctor
[2018-03-05 16:47] LABS: Alanine Aminotransferase 35 U/L (10-53); Anion Gap 5 meq/L (5-15); Aspartate Aminotransferase 21 U/L (15-37); Blood Urea Nitrogen 13 mg/dL (7-18); Calcium 9.3 mg/dL (8.5-10.1); Carbon Dioxide 30.1 meq/L (21.0-32.0); Chloride 104 meq/L (98-107); Glomerular Filtration Rate 49 mL/min (>89); Glucose,Random 111 mg/dL (74-106); Sodium 139 meq/L (136-145)
[2018-03-05 16:51] LABS: Alkaline Phosphatase 100 U/L (45-117); Total Protein 8.2 g/dL (6.4-8.2)
[2018-03-05] MEDS ORDERED: Ketorolac Inj 30 MG/ML (IVP) Vial IV.PUSH ONE (18:26)
--- NOTE | 2018-03-05 18:27 | P.HPCA ---
History of Present Illness Primary Care Physician: No Primary Care Physician Chief Complaint: Chest pain History of Present Illness: 58 year old female with history of hypertension and quit taking medication for 2 years due to lack of provider presents emergency room for further evaluation of tingling of lips, lightheadedness, headache, nosebleed, and chest pain. Onset this morning while driving to work felt lips were tingling. She disregarded this however after eating lunch developed a headache and a "severe nosebleed with clots." Her boss encouraged evaluation at ER. 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 The wait at the urgent care was long and she began feeling worse. On way to hospital developed substernal chest pressure described as "a weight on my chest." No radiation. Associated symptoms included dizziness, dyspnea, nausea, and headache. Duration 1 hour. Severe in severity. No precipitating or relieving factors. Currently hurts to touch chest area. Endorses similar pain approximately 4 years ago although not as severe and did not complete any further testing at that time. No recent illness, fever, or injury. Past cardiac testing None Social history Known hypertension has been out of her medication for 2 years. No known hyperlipidemia, coronary artery disease, or diabetes. Lifelong non-smoker. Denies alcohol or recreational drug use. Family history Noncontributory for early onset cardiovascular disease - Diagnosis (1) Atypical chest pain (2) Hypertension Review of Systems All other systems reviewed negative except as stated in [facility] - History History Provided By: Patient - Medical History Medical History: Medical History (Last Reviewed 03/05/18 @ 18:42 by BETH Churchill) Asthma Hypertension - Surgical History Surgical History: Surgical History (Last Updated 03/05/18 @ 18:42 by BETH Churchill) History of appendectomy Hx of tonsillectomy Hx of tubal ligation - Tobacco History Second Hand Smoke Exposure: No Smoking Status: Never smoker - Alcohol History How Often Do You Have a Drink Containing Alcohol: Never - Substance Use History Substance History: Active Abuse - Travel History Recent Travel in the [place] Within the Last 8 Weeks: No Recent Travel Out of the Country Within the Last 8 Weeks: No - Immunization History Tetanus Immunization: >5 Years Medications and Allergies Active Medications: Active Medications Acetaminophen (Tylenol) 500 mg PO Q4H PRN PRN Reason: HEADACHE Ondansetron HCl (Zofran Inj) 4 mg IV.PUSH Q6H PRN PRN Reason: NAUSEA Sodium Chloride (Ns Flush) 2 ml IV.FLUSH UNSCH PRN PRN Reason: FLUSH AFTER USING IV ACCESS Sodium Chloride (Ns Flush) 2 ml IV.FLUSH BID CLAUDIA Sodium Chloride (Ns Flush) 2 ml IV.FLUSH PRN PRN PRN Reason: FLUSH AFTER USING IV ACCESS Allergies Allergy/AdvReac Type Severity Reaction Status Date / Time levofloxacin Allergy Severe Hives Verified 12/01/17 11:45 Home Medications Medication Instructions Recorded Confirmed Type No Known Home Medications 03/05/18 03/05/18 History Exam Vital signs: Vital Signs 03/05/18 15:44 03/05/18 15:57 03/05/18 16:25 Temperature 99 F Pulse Rate 100 H 98 H 87 Respiratory Rate 18 21 21 Blood Pressure 163/78 H 194/94 H 168/73 H Pulse Oximetry 97 97 96 Intake & Output 03/04/18 03/05/18 03/05/18 18:59 06:59 18:59 Weight 94.801 kg Narrative: GENERAL: Alert WN, WD, NAD, pleasant, obese, female HEAD: NC, AT CV: RRR, without murmur, rub, gallop. Substernal chest wall tender to palpation. RESP: Clear lungs throughout bilateral, no crackles, wheeze, rhonchi, symmetrical chest rise, nonlabored, able to speak in full sentences ABD: Soft, NT, ND, no masses, positive bowel tones, obese EXT: Pulses +2x4, no dependent edema MS: Normal tone x4 extremities, nontender, no obvious deformities, full range of motion NEURO: Motor strength 5/5 PSYCH: A+O x3, pleasant affect, appropriate speech, mood, insight and judgment SKIN: Normal turgor, normal texture, no lesions, no rashes, tattoos Results 03/05/18 16:05 03/05/18 16:05 Cardiac Enzymes 03/05/18 Range/Units 16: AST 21 (15-37) U/L Troponin I Less than 0.02 L (0.02-0.05) ng/mL CBC 03/05/18 Range/Units 16:05 WBC 9.3 (4.0-11.0) th/mm3 RBC 4.08 (4.00-5.30) mil/mm3 Hgb 13.4 (11.6-15.3) gm/dL Hct 38.1 (35.0-46.0) % Plt Count 281 (150-450) th/mm3 Neut # (Auto) 5.9 (1.8-7.7) th/mm3 Lymph # (Auto) 2.5 (1.0-4.8) th/mm3 [place] # (Auto) 0.6 (0.0-0.9) th/mm3 Eos # (Auto) 0.1 (0.0-0.4) th/mm3 Baso # (Auto) 0.1 (0.0-0.2) th/mm3 Comprehensive Metabolic Panel 03/05/18 Range/Units 16:05 Sodium 139 (136-145) meq/L Potassium 4.0 (3.5-5.1) meq/L Chloride 104 (98-107) meq/L Carbon Dioxide 30.1 (21.0-32.0) meq/L BUN 13 (7-18) mg/dL Creatinine 1.13 H (0.50-1.00) mg/dL Calcium 9.3 (8.5-10.1) mg/dL AST 21 (15-37) U/L ALT 35 (10-53) U/L Alkaline Phosphatase 100 (45-117) U/L Total Protein 8.2 (6.4-8.2) g/dL Albumin 4.0 (3.4-5.0) g/dL Intake and Output 03/05/18 03/05/18 03/05/18 06:59 14:59 22:59 Other: Weight 94.801 kg Patient Weight 03/06/18 06:59 Weight 94.801 kg - Imaging and Cardiology Imaging: Impressions Chest X-Ray 03/05/18 15:57 CONCLUSION: The lungs are clear. EKG interpretations - EKG EKG results cardiology: sinus rhythm, normal axis, normal QRS, normal ST/T Caprini VTE Risk Assessment Caprini VTE Risk Assessment: No/Low Risk (score <= 1) Caprini Risk Assessment Model: Point Value = 1 Point Value = 2 Point Value = 3 Point Value = 5 Age 41-60 Minor surgery BMI > 25 kg/m2 Swollen legs Varicose veins or History of unexplained or recurrent spontaneous Oral contraceptives or hormone replacement Sepsis (< 1 month) Serious lung disease, including pneumonia (< 1 month) Abnormal pulmonary function Acute myocardial infarction Congestive heart failure (< 1 month) History of inflammatory bowel disease Medical patient at bed rest Age 61-74 Arthroscopic surgery Major open surgery (> 45 min) Laparoscopic surgery (> 45 min) Malignancy Confined to bed (> 72 hours) Immobilizing plaster cast Central venous access Age >= 75 History of VTE Family history of VTE Factor V Leiden Prothrombin [id number] Lupus anticoagulant Anticardiolipin antibodies Elevated serum homocysteine Heparin-induced thrombocytopenia Other congenital or acquired thrombophilia Stroke (< 1 month) Elective arthroplasty Hip, pelvis, or leg fracture Acute spinal cord injury (< 1 month) Prophylaxis Regimen: Total Risk Factor Score Risk Level Prophylaxis Regimen 0-1 Low Early ambulation 2 Moderate Order ONE of the following: *Sequential Compression Device (SCD) *Heparin 5000 units SQ BID 3-4 Higher Order ONE of the following medications: *Heparin 5000 units SQ TID *Enoxaparin/Lovenox 40 mg SQ daily (WT < 150 kg, CrCl > 30 mL/min) *Enoxaparin/Lovenox 30 mg SQ daily (WT < 150 kg, CrCl > 10-29 mL/min) *Enoxaparin/Lovenox 30 mg SQ BID (WT < 150 kg, CrCl > 30 mL/min) AND/OR *Sequential Compression Device (SCD) 5 or more Highest Order ONE of the following medications: *Heparin 5000 units SQ TID (Preferred with Epidurals) *Enoxaparin/Lovenox 40 mg SQ daily (WT < 150 kg, CrCl > 30 mL/min) *Enoxaparin/Lovenox 30 mg SQ daily (WT < 150 kg, CrCl > 10-29 mL/min) *Enoxaparin/Lovenox 30 mg SQ BID (WT < 150 kg, CrCl > 30 mL/min) AND *Sequential Compression Device (SCD) Assessment and Plan - Assessment (1) Atypical chest pain Code(s): R07.89 - Other chest pain Status: Acute Plan: Admitted to chest pain center. Monitor on telemetry overnight. Rule out ACS with standard chest pain center protocol including 3 sets of EKGs and cardiac enzymes. Will be seen and evaluated in morning by Dr. Tobin Coronel. Discussed possible exercise cardiac testing in morning. (2) Hypertension Code(s): I10 - Essential (primary) hypertension Status: Acute Plan: Continue to monitor. Amlodipine 5 mg p.o. daily, first dose now. Clonidine 0.1 mg every 6 hours as needed for systolic greater than 180. Strongly encouraged her to establish with a primary care provider. Discussed importance of tight blood pressure control, low-sodium diet, and follow to to ensure on appropriate blood pressure medication. Verbalized understanding and agreeable to plan of care. [facility] [address] contact information placed in discharge. (2) Hypertension Qualifiers: Hypertension type: unspecified Qualified Code(s): I10 - Essential (primary) hypertension
[2018-03-05] MEDS: amLODIPine 5 MG Tablet PO SCH (18:54)
[2018-03-05 19:34] LABS: Creatine Kinase 178 U/L (26-192)
[2018-03-05 23:10] LABS: Creatine Kinase 174 U/L (26-192)
[2018-03-06] MEDS: Acetaminophen 500 MG Tablet PO PRN ×2 (04:47→08:46)
[2018-03-06] MEDS: amLODIPine 5 MG Tablet PO SCH (08:07)
--- NOTE | 2018-03-06 09:24 | TR ---
Date Performed: 03/06/2018 Time Performed: 08:16:37 DOCTOR: Tobin Coronel DRUG LIST: CLINICAL HISTORY: REASON FOR TEST: Chest pain REASON FOR ENDING: OBSERVATION: CONCLUSION: ALINA PROTOCOL. NO CP. TEST STOPPED AFTER EXCEEDING GOAL HR SECONDARY TO SOB AND LEG FATIGUE.Maximum TK=362 % Max HR Achieved=89.0% Maximum SW=883/80 Total Exercise Time=5:17 COMMENTS: J-point depression with curving upsloping ST segments that are nondiagnostic for ische ameya. Low probability of clinically significant ischemic heart disease as cause of current presentati on but further outpatient evaluation recommended.
--- NOTE | 2018-03-06 09:40 | P.PNCA ---
Subjective Interval history: This patient was initially seen and evaluated by the nurse practitioner and by Dr. Hill on March 05. Her documentation was reviewed and she was then seen and examined by me personally this morning. She ruled out for ACS using standard [employer] protocol she has subsequently undergone an exercise stress test this morning. She is comfortable pain-free with stable vital signs. Her test results were reviewed and her ETT shows some nondiagnostic ST changes. I talked with the patient at some length in regards to her need to continue appropriate medication for blood pressure control and for alteration of her lifestyle to include diet and weight loss. Also discussed the need for outpatient follow-up and a recommendation for a repeat stress test at 6 months or a year after adequate control of her blood pressure. She recently became insured by [employer] and although she currently has no doctor she assures me she will follow-up and establish with an outpatient physician. She will be discharged with medication for outpatient follow-up including general evaluation follow-up of her hypertension and follow-up on her ETT abnormalities. Medications and Allergies Active Medications: Active Medications Acetaminophen (Tylenol) 500 mg PO Q4H PRN PRN Reason: HEADACHE Last Admin: 03/06/18 08:46 Dose: 500 mg Amlodipine Besylate (Norvasc) 5 mg PO DAILY [facility] Last Admin: 03/06/18 08:07 Dose: 5 mg Clonidine HCl (Catapres) 0.1 mg PO Q6H PRN PRN Reason: SYS BP GREATER THAN 180 MMHG Ondansetron HCl (Zofran Inj) 4 mg IV.PUSH Q6H PRN PRN Reason: NAUSEA Sodium Chloride (Ns Flush) 2 ml IV.FLUSH UNSCH PRN PRN Reason: FLUSH AFTER USING IV ACCESS Sodium Chloride (Ns Flush) 2 ml IV.FLUSH BID [facility] Last Admin: 03/06/18 08:07 Dose: 2 ml Sodium Chloride (Ns Flush) 2 ml IV.FLUSH PRN PRN PRN Reason: FLUSH AFTER USING IV ACCESS Allergies Allergy/AdvReac Type Severity Reaction Status Date / Time levofloxacin Allergy Severe Hives Verified 12/01/17 11:45 Home Medications Medication Instructions Recorded Confirmed Type No Known Home Medications 03/05/18 03/05/18 History Physical Exam Vital signs: Vital Signs 03/05/18 15:44 03/05/18 15:57 03/05/18 16:25 Temperature 99 F Pulse Rate 100 H 98 H 87 Respiratory Rate 18 21 21 Blood Pressure 163/78 H 194/94 H 168/73 H Pulse Oximetry 97 97 96 03/05/18 18:54 03/05/18 20:13 03/05/18 21:06 Temperature 98.0 F Pulse Rate 75 81 82 Respiratory Rate 22 18 20 Blood Pressure 176/72 H 172/74 H 147/67 H Pulse Oximetry 98 95 97 03/06/18 00:00 03/06/18 00:05 03/06/18 04:00 Temperature 97.9 F 97.6 F Pulse Rate 79 70 71 Respiratory Rate 17 18 Blood Pressure 139/69 165/72 H Pulse Oximetry 97 95 03/06/18 06:48 03/06/18 07:51 03/06/18 08:00 Temperature 97.9 F Pulse Rate 72 Respiratory Rate 18 20 Blood Pressure 153/87 H Pulse Oximetry 95 96 Intake & Output 03/05/18 03/06/18 03/06/18 18:59 06:59 18:59 Output Total 400 / 400 Balance -400 / -400 Weight 94.801 kg 94.8 kg Output: Urine 400 / 400 Other: Weight On Admission 94.8 kg Narrative: Somewhat obese white female resting comfortably in bed Skin warm and dry vital signs stable tattoo right shoulder Neck supple no JVD masses nodes or bruits Chest nontender clear to auscultation with no rales wheezes or rhonchi Cardiovascular PMI is not displaced there is a regular rhythm no gallops rubs or murmurs Extremities no clubbing cyanosis or edema Results 03/05/18 16:05 03/05/18 16:05 Cardiac Enzymes 03/05/18 03/05/18 03/05/18 Range/Units 16:05 18:36 22:25 AST 21 (15-37) U/L Troponin I Less than 0.02 L Less than 0.02 L Less than 0.02 L (0.02-0.05) ng/mL CBC 03/05/18 Range/Units 16:05 WBC 9.3 (4.0-11.0) th/mm3 RBC 4.08 (4.00-5.30) mil/mm3 Hgb 13.4 (11.6-15.3) gm/dL Hct 38.1 (35.0-46.0) % Plt Count 281 (150-450) th/mm3 Neut # (Auto) 5.9 (1.8-7.7) th/mm3 Lymph # (Auto) 2.5 (1.0-4.8) th/mm3 [place] # (Auto) 0.6 (0.0-0.9) th/mm3 Eos # (Auto) 0.1 (0.0-0.4) th/mm3 Baso # (Auto) 0.1 (0.0-0.2) th/mm3 Comprehensive Metabolic Panel 03/05/18 Range/Units 16:05 Sodium 139 (136-145) meq/L Potassium 4.0 (3.5-5.1) meq/L Chloride 104 (98-107) meq/L Carbon Dioxide 30.1 (21.0-32.0) meq/L BUN 13 (7-18) mg/dL Creatinine 1.13 H (0.50-1.00) mg/dL Calcium 9.3 (8.5-10.1) mg/dL AST 21 (15-37) U/L ALT 35 (10-53) U/L Alkaline Phosphatase 100 (45-117) U/L Total Protein 8.2 (6.4-8.2) g/dL Albumin 4.0 (3.4-5.0) g/dL Intake and Output 03/05/18 03/06/18 03/06/18 22:59 06:59 14:59 Output Total 400 / 400 Balance -400 / -400 Output: Urine 400 / 400 Other: Weight 94.801 kg 94.8 kg Weight On Admission 94.8 kg Patient Weight 03/07/18 06:59 Weight 94.8 kg - Imaging and Cardiology Imaging: Impressions Chest X-Ray 03/05/18 15:57 CONCLUSION: The lungs are clear. Assessment and Plan - Assessment (1) Atypical chest pain Code(s): R07.89 - Other chest pain Status: Acute Plan: Admitted to chest pain center. Monitor on telemetry overnight. Rule out ACS with standard chest pain center protocol including 3 sets of EKGs and cardiac enzymes. Will be seen and evaluated in morning by Dr. Tobin Coronel. Discussed possible exercise cardiac testing in morning. Addendum: Patient had good exercise stress test with no chest pain. She had some J-point depression but with upsloping ST segments nondiagnostic for ischemia. However in view of her risk factors and nonspecific EKG changes follow-up on an outpatient basis after adequate control of her blood pressure and modification of her risk factors is strongly recommended. Patient assures me that she will establish with him follow-up with a community physician post discharge. (2) Hypertension Code(s): I10 - Essential (primary) hypertension Status: Acute Plan: Continue to monitor. Amlodipine 5 mg p.o. daily, first dose now. Clonidine 0.1 mg every 6 hours as needed for systolic greater than 180. Strongly encouraged her to establish with a primary care provider. Discussed importance of tight blood pressure control, low-sodium diet, and follow to to ensure on appropriate blood pressure medication. Verbalized understanding and agreeable to plan of care. [facility] contact information placed in discharge. (2) Hypertension Qualifiers: Hypertension type: unspecified Qualified Code(s): I10 - Essential (primary) hypertension
--- NOTE | 2018-03-06 10:42 | ECG ---
Date Performed: 03/05/2018 Time Performed: 21:50:16 PTAGE: 58 years EKG: Sinus rhythm LOW QRS VOLTAGE IN PRECORDIAL LEADS BORDERLINE ECG No significant change PREVIOUS TRACING : 03/05/2018 18.47 DOCTOR: Tobin Coronel Interpretating Date/Time 03/06/2018 10:41:15
--- NOTE | 2018-03-06 10:43 | ECG ---
Date Performed: 03/05/2018 Time Performed: 18:47:45 PTAGE: 58 years EKG: Sinus rhythm LOW QRS VOLTAGE IN PRECORDIAL LEADS BORDERLINE ECG No significant change PREVIOUS TRACING : 03/05/2018 16.07 DOCTOR: Tobin Coronel Interpretating Date/Time 03/06/2018 10:42:00
--- NOTE | 2018-03-06 10:44 | ECG ---
Date Performed: 03/05/2018 Time Performed: 16:07:16 PTAGE: 58 years EKG: Sinus rhythm LOW QRS VOLTAGE IN PRECORDIAL LEADS BORDERLINE ECG NO PREVIOUS TRACING DOCTOR: Tobin Coronel Interpretating Date/Time 03/06/2018 10:42:17
== END 2018-03-06 10:55 | disposition home or self-care (01) ==
LOC: NEPE 15:34 → NEDA 15:34 → NEPFCDU 20:20
PROVIDERS: ADMIT Internal Medicine Cardiovascular Disease; ATTEND Internal Medicine Cardiovascular Disease
CPT/HCPCS: 71010; 71045; 80053; 82550; 84484; 85025; 93005; 93017; 96374; 99285; G0378; J1885